=== PATIENT | male | born 1945 | race Caucasian/White ===

== ENCOUNTER 2021-09-20 15:05 | Emergency (ER) | payer MEDICARE, SELFPAY ==
[2021-09-20] VITALS (89 sets, daily range): BP systolic 147–193; BP diastolic 75–159; PULSE 53–81; RESP 12–28; TEMP 36.6–37.9; O2SAT 89–98
--- NOTE | 2021-09-20 15:45 | RT.EKG_ITS ---
APPROVED REPORT Exam: Resting ECG Reason for Exam: ams Patient Location: E HR:62 bpm ECG Measurements Heart Rate 62 AXIS VT 156 P -12 QRSd 93 QRS -6 QT 438 T 24 QTc 446 Conclusion Sinus rhythm...normal P axis, V-rate 60- 99 sinus rhythm, normal intervals, no ST segment abnormalities, poor R wave progression in anterior lead s
--- NOTE | 2021-09-20 15:55 | W.ED.GENAD ---
Discharge Plan Disposition Patient Disposition: STILL A PATIENT Condition: Stable Discharge Details Chief Complaint: GenMedical Clinical Impression: Disorientation Primary Care Provider: Unknown,Unknown ED Provider: Alverto Kaiser Medical Decision Making 76-year-old male unknown past medical history brought in by PD found on side of road pulled over, patient endorses that he has a trial of gas is nervous because he is from out of town and does not want to be driving late, tearful and slightly anxious, endorses dry cough for some time, no headache or chest pain or shortness of breath, is confused regarding place and time, is alert alert to self and home situation as well as past events, however confused about current situation; cranial nerves intact strength and sensation intact, hemodynamically stable, borderline fever and dry cough. Consider dementia versus delirium in the setting of viral infection versus pneumonia versus electro normality versus must consider intracranial process such as stroke or intracranial hemorrhage lower suspicion for meningeal encephalitis. Lower suspicion for toxicologic process. Will send labs, imaging including CT head chest x-ray, EKG, light fluids close reassessment will attempt to reach out to remain. Patient may need to be a social admission for generalized and safety check given time of day and fear of traveling at night. 22: 04 labs and imaging largely unremarkable. Patient resting comfortably. Likely component of longstanding dementia possible delirium. Called hospitalist for social admission given patient's age and unsafe discharge at this time given presentation of confusion disorientation and inability to contact any collateral sources. Given inpatient bed status as well as multiple critical admissions this evening hospitalist would feel more comfortable for patient to stay in the ED and reassessed in the morning, will have case management attempt to help coordinate safe disposition. HPI General Date/Time Provider Initiated Documentation: 09/20/21 15:29. HPI Narrative: 76-year-old male no past medical history presents brought in by PD after being found on the side of the road pulled over patient is from out of town, was here locally we registering at the [facility], endorses that he was running out of gas and developed breakdown therefore he pulled over, patient is tearful and confused. Endorse that he lives in [place] with a male roommate that has been his remain for 8 to 9 years. Patient denies headache chest pain shortness of breath nausea or vomiting. Has had a cough for some time Related Data Allergies Allergy/AdvReac Type Severity Reaction Status Date / Time No Known Allergies Allergy Unverified 09/20/21 15:11 General Stated Complaint: GenMedical GERALDINE: 3 Review of Systems Narrative: Review of Systems Constitutional: negative Eyes: negative ENT: negative Cardiovascular: negative Respiratory: negative Gastrointestinal: negative : negative Musculoskeletal: negative Skin: negative Neurologic: Confusion, disorientation Psych: negative PFSH All Active Problems (Updated 09/20/21 @ 22:06 by Alverto Kaiser MD) Disorientation (Acute) Social History Smoking/Tobacco Use Status: Former Tobacco Use Smoking risk assessment performed?: Yes Alcohol Intake: former Drug use: Daily Substance use type: marijuana Details: PATIENT STATES HE IS A DAILY POT SMOKER BUT DID NOT SMOKE TODAY BECAUSE HE WAS DRIVING Do you feel safe at home: Yes Do you feel safe in your relationship?: Yes Additional Social history: PATIENT STATES HE LIVES WITH HIS FRIEND HAVEN WARD [phone] Exam Narrative Exam Narrative: Physical Examination General: alert, awake, cooperative, resting comfortably, no acute distress HEENT: normocephalic, atraumatic; PERRL, EOM intact, conjunctiva normal; no nasal discharge; moist mucous membranes, oral and pharyngeal mucosa normal, tolerating secretions Neck: supple, trachea midline; full ROM Chest: normal to inspection Respiratory: normal respiratory effort, speaking in full sentences, clear to auscultation, no wheezing, rales or rhonchi Cardiac: regular rate, regular rhythm, S1S2 intact, no murmurs rubs or gallops GI: abdomen soft, non-tender, non-distended; no palpable mass or hepatosplenomegaly Skin: no lesions, rashes or trauma appreciated Neuro: Patient is alert to self, knows that he is in [place] however did not know the town, endorses that it is 2011; cranial nerves II through XII intact, 5/5 strength upper and lower extremities, normal sensation; patient is able to recall past events and discussed things like prior appointment and living situation however is generally confused about current situation Psych: Slightly tearful Course Vital Signs Vital signs: Vital Signs Temperature 37.9 C H 09/20/21 15:07 Pulse 77 09/20/21 15:07 Respiratory Rate 18 09/20/21 15:07 Blood Pressure 147/88 H 09/20/21 15:07 Pulse Oximetry 93 09/20/21 15:07 Temperature 37.9 C H 09/20/21 15:07 Temperature Source Tympanic 09/20/21 15:07 Pulse 77 09/20/21 15:07 Respiratory Rate 18 09/20/21 15:07 Blood Pressure 147/88 H 09/20/21 15:07 Blood Pressure Position Sitting 09/20/21 15:07 Pulse Oximetry 93 09/20/21 15:07 Oxygen Delivery Method Room Air 09/20/21 15:07 Oxygen Flow Rate 0 09/20/21 15:07 Pain Level 0 09/20/21 15:07
[2021-09-20 16:45] LABS: Source Nasal/Nares
[2021-09-20] MEDS: Normal Saline 500 ML 1000 ML IV (17:00)
[2021-09-20 17:22] LABS: Abs Immature Grans 0.04 10^3/uL (0.0-0.06); Absolute Basophil Count 0.09 10^3/uL (0.0-0.2); Absolute Eosinophil Count 0.25 10^3/uL (0.0-0.7); Absolute Monocyte Count 0.65 10^3/uL (0.1-0.8); Absolute Neutrophil Count 6.49 10^3/uL (1.2-6.7); Eosinophils % 2.7; HGB 14.1 g/dL (13.5-17.5); Immature Grans % 0.4; Lymphocytes % 20.2; MCH 33.2 pg (27.0-33.0); MCHC 35.3 % (32.0-36.0); MCV 94 fL (80-95); Monocytes % 6.9; Neutrophils % 68.8; Platelet Count 251 10^3/uL (130-400); RBC 4.25 10^6/uL (4.36-5.78); RDW 12.1 % (11.8-14.1); RDW-SD 42.1 fL; WBC 9.42 10^3/uL (4.4-10.8)
--- NOTE | 2021-09-20 17:27 | DI.RAD_ITS ---
Exam(s) XR CHEST 1V IN DI DEPT EXAM: XR CHEST 1V IN DI DEPT CLINICAL HISTORY: ams. TECHNIQUE: 2D digital imaging was performed. COMPARISON: No exams were available for comparison FINDINGS: Single AP portable view. Heart size is upper normal. The mediastinum is not widened. Bilateral calcified pleural plaques are noted. There are no confluent infiltrates nor pleural effusi ons. No pneumothorax. No pulmonary edema. IMPRESSION: Calcified pleural plaques bilaterally. No acute infiltrates. No pleural effusions DATA REPOSITORY: RADIATION DOSE DELIVERED: All CT scans at this facility use at least one of these dose optimization techniques: automated exposure control; mA and/or kV adjustment per patient size (includes targeted e xams where dose is matched to clinical indication); or iterative reconstruction.
[2021-09-20 17:29] LABS: Bilirubin Negative (Negative); Blood Moderate (Negative); Clarity Clear (Clear); Glucose Negative (Negative); Ketones Negative (Negative); Leukocyte Esterase Negative (Negative); Nitrite Negative (Negative); Specific Gravity 1.025 (1.005-1.025); Urobilinogen 0.2 EU/dL (Up TO 0.2)
--- NOTE | 2021-09-20 17:31 | DI.CT_ITS ---
Exam(s) CT HEAD WO EXAM: CT HEAD WO CLINICAL HISTORY: altered mental status, confusion. TECHNIQUE: Imaging Protocol: Axial computed tomography images with coronal and sagittal reformatted images were created and reviewed COMPARISON: No exams were available for comparison FINDINGS: There are no skull fractures nor fluid in the visualized paranasal sinuses. There is no evidence of intracranial hemorrhage, mass effect, or shift of midline structures. There are no extra-axial fluid collections. The ventricles are not enlarged or shifted and there is no blo od within the ventricular system nor within the basal cisterns. IMPRESSION: No acute intracranial findings on this noninfused CT scan of the brain. RADIATION DOSE DELIVERED: 732.87mGy.cm Total DLP DATA REPOSITORY: All CT scans at this facility are submitted to the National Radiology Data Registry (NRDR) Dose Index Registry (DIR) with the [employer] (ACR). RADIATION OPTIMIZATION: All CT scans at this facility use at least one of these dose optimization te chniques: automated exposure control; mA and/or kV adjustment per patient size (includes targeted exa ms where dose is matched to clinical indication); or iterative reconstruction.
[2021-09-20 17:35] LABS: PTT Activated 24.7 sec (21.0-27.5); Prothrombin Time 10.2 sec (9.3-11.0)
[2021-09-20 17:38] LABS: COVID-19 PCR Negative (Negative)
[2021-09-20 17:38] LABS: Bacteria Negative HPF (Negative); C & S Indicated? No; Crystals Negative HPF (Negative); Epithelial Cells Negative HPF (Negative); Mucus Trace (Negative); RBC >50 HPF (0-2)
[2021-09-20 17:44] LABS: *AMPHETAMINES SCREEN URINE Negative (Negative); *BARBITURATES SCREEN URINE Negative (Negative); *BENZODIAZEPINES SCREEN URINE Negative (Negative); Cannabinoids THC Positive (Negative); Cocaine Screen,Urine Negative (Negative); METHADONE URINE SCREEN Negative (Negative); OPIATES URINE SCREEN Negative (Negative)
[2021-09-20 17:45] LABS: Tricyclic Antidepressants Negative (Negative)
[2021-09-20 17:53] LABS: ALT 19 U/L (16-63); AST 16 U/L (15-37); Albumin 3.7 g/dL (3.4-5.0); Alkaline Phosphatase 65 U/L (46-116); Anion Gap 7.9 mmol/L (3-11); BUN 15 mg/dL (7-18); Bilirubin, Total 0.8 mg/dL (0.2-1.0); CO2 27.1 mmol/L (21.0-32.0); Calcium 8.9 mg/dL (8.5-10.1); Chloride 105 mmol/L (98-107); Glucose 116 mg/dL (74-106); Magnesium 2.2 mg/dL (1.8-2.4); Potassium 3.9 mmol/L (3.5-5.1); Sodium 140 mmol/L (136-145); TSH (W/Ref FT4) 1.06 uIU/mL (0.36-3.74); Total Protein 6.8 g/dL (6.4-8.2); Troponin I < 50 ng/L (<or=60)
--- NOTE | 2021-09-20 17:53 | DI.VRAD_ITS ---
PROCEDURE INFORMATION: Exam: CT Head Without Contrast Exam date and time: 09/20/2021 5:21 PM Age: 76 years old Clinical indication: Other: Altered mental status, confusion TECHNIQUE: Imaging protocol: Computed tomography of the head without contrast. COMPARISON: No relevant prior studies available. FINDINGS: Brain: Prominence of cerebral sulci reflects cerebral atrophy. A few poorly marginated hypodensities seen throughout the deep and periventricular white matter of both cerebral hemispheres are consistent with microvascular ischemic changes. Brainstem and cerebellum are unremarkable and there is no evidence of acute infarct or recent intracranial hemorrhage. Cerebral ventricles: Dilatation of the 3rd and lateral ventricles is commensurate with the degree of cerebral atrophy. Paranasal sinuses: Grossly clear throughout. Mastoid air cells: Grossly clear bilaterally. Probable cerumen seen in the external auditory canals bilaterally. Bones/joints: Bony calvarium and skull base are intact and no acute fractures are detected. Soft tissues: Unremarkable. IMPRESSION: Cerebral atrophy and probable microvascular ischemic changes with no evidence of acute infarct, recent hemorrhage or hydrocephalus. No acute intracranial process is detected. Dictated and Authenticated by: Delta Castillo MD. Ordering:SHANIA Del Toro MD
[2021-09-20 17:55] LABS: ETHANOL BLOOD < 3.0 mg/dL (<10)
--- NOTE | 2021-09-20 17:55 | DI.VRAD_ITS ---
PROCEDURE INFORMATION: Exam: XR Chest Exam date and time: 09/20/2021 5:27 PM Age: 76 years old Clinical indication: Other: AMS TECHNIQUE: Imaging protocol: Radiologic exam of the chest. Views: 1 view. COMPARISON: No relevant prior studies available. FINDINGS: Lungs: Pleural calcifications are seen projected over the mid to upper lung mendoza bilaterally with no parenchymal consolidation or collapse detected. Pleural spaces: No pneumothorax or pleural effusion detected. Heart/Mediastinum: Heart size is normal and vessel margins are sharply defined. Bones/joints: No acute osseous lesions are detected. IMPRESSION: Chronic pleural calcifications are incidentally with noted bilaterally with no evidence of an acute cardiopulmonary process detected. Dictated and Authenticated by: Delta Castillo MD. Ordering:SHANIA Del Toro MD
--- NOTE | 2021-09-20 23:25 | NUR.NOTE ---
PATIENT IS CONFUSED AND ANXIOUS AT TIMES. HE GOT LOST AFTER GOING TO THE PENDING SALE TO [facility] IN [place]. DURING THE COURSE OF THE EVENING, MULTIPLE CONVERSATIONS WERE HELD. FOOD WAS OFFERED MULTIPLE TIMES, BUT HE DECLINED. HE IS PLEASANT AND APPROPRIATE. HE STATES HE LIVES WITH ANOTHER GENTLEMAN, THIAGO WARD. HE ALTERNATED BETWEEN CALLING HIM HAVEN OR JADA. HE STATED THIS GENTLEMAN'S PHONE NUMBER WAS [phone]. MULTIPLE ATTEMPTS WERE MADE TO RING THE LINE, BUT NO ONE ANSWERED, NOR WAS THERE AN ANSWERING MACHINE. HE ALSO STATED HE FREQUENTED A RESTAURANT IN [place] (HIS HOME AREA) CALLED THE PEDDLER. IT APPEARS TO BE A DINER ATTACHED TO A MOBILE SERVICE STATION. THE PHONE NUMBER FOR THE PEDDLER IS [phone]. HE STATES HE IS WELL KNOWN THERE. HE STATED THAT THIAGO'S DAUGHTER ALSO LIVED IN [place]. HER NAME IS STEFANIE (POSSIBLY CALLUM) AND SHE IS TO D.D. WHO IS A SILVERWARE CLEANER. HE DID NOT KNOW THEIR NUMBER BUT STATED THEY WERE PEOPLE OF INTEREST AND THAT THEY KNEW HIM, BUT THIS CRM FUNCTIONAL ANALYST WAS TO BE CAREFUL AROUND THEM BECAUSE THEY COULD BE SHYSTERS AND HE DID NOT WANT THEM NEAR HIS CAR. HE STATES HE DRIVES A CHARLES ROGUE AND HE THINKS IT IS IN OUR PARKING LOT AT [facility].
[2021-09-21] VITALS (71 sets, daily range): BP systolic 158–198; BP diastolic 74–97; PULSE 47–76; RESP 12–24; O2SAT 90–99
--- NOTE | 2021-09-21 10:17 | ED.PROG_ITS ---
Date of service: 09/21/21 Time of Service: 10:17 Medical Decision Making pt signed out to me pending a ride back to his home in [place]. He apparently was trying to go to the [employer] in [place] but got lost and ended up in [place] and was brought here. Observed overnight with no issues, no complaints currently, care management assisting in trying to get him a ride home Sign Out Sign Out Data: Sign Out Comment: dementia, confused, got lost on way from [place]; awaiting child welfare caseworker/social work in AM for coordination to get home; hospitalist will admit in AM if cant find a way home Last updated by Alverto Kaiser MD at 09/20/21 23:12 Sign Out Comment: pending case management/social work coordinating family/getting home Last updated by Kevin Chew MD at 09/21/21 07:46 Discharge Plan Disposition Patient Disposition: HOME Condition: Stable Discharge Details Clinical Impression: Disorientation Primary Care Provider: Unknown,Unknown ED Provider: Raz Franco Discharge Instructions Additional Instructions: Follow up with your primary care provider within 1 week if you feel more ill, have difficulty breathing or severe pain return to the emergency department
== END 2021-09-21 13:24 | disposition home or self-care (01) ==
PROVIDERS: Emergency Medicine; Emergency Provider Emergency Medicine
DX: R41.0 Disorientation, unspecified (principal); F41.9 Anxiety disorder, unspecified; R05.9 Cough, unspecified; Z87.891 Personal history of nicotine dependence; Z20.822 Contact with and (suspected) exposure to COVID-19; Z13.89 Encounter for screening for other disorder; Z13.858 Encounter for screening for other nervous system disorders
CPT/HCPCS: 36415; 36416; 80053; 80307; 82962; 87635; 93005; 96360; 96361; 99285; 70450; 71045; 80320; 81003; 81015; 83735; 84443; 84484; 85025; 85610; 85730; 93010